=== PATIENT | female | born 1990 | race Two or more races ===

== ENCOUNTER 2022-05-12 10:42 | Emergency (ER) | payer OTHER ==
[~2022-05-12] VITALS: Ht 160 cm; Wt 89.8 kg
== END 2022-05-12 11:45 | disposition home or self-care (01) ==
LOC: ER 10:42
DX: H65.92 Unspecified nonsuppurative otitis media, left ear (principal)

== ENCOUNTER 2022-05-19 11:41 | Emergency (ER) | payer OTHER ==
[~2022-05-19] VITALS: Ht 160 cm; Wt 89.8 kg
== END 2022-05-19 16:08 | disposition home or self-care (01) ==
LOC: ER 11:41
DX: R42 Dizziness and giddiness (principal); R51.9 Headache, unspecified; R53.81 Other malaise